=== PATIENT | male | born 1995 | race Hispanic/Latino ===

== ENCOUNTER → 2018-05-04 | Emergency (ER) | payer OTHER ==
[~2018-05-04] VITALS: Ht 162.6 cm; Wt 74.8 kg
[~2018-05-04] MED LIST: PRIFTIN150 MG PO; PYRIDOXINE HCL50 MG PO
== END | disposition home or self-care (01) ==
LOC: ED 23:17
DX: R10.31 Right lower quadrant pain (principal); Z79.899 Other long term (current) drug therapy
CPT/HCPCS: 74177; 80053; 81001; 82140; 83690; 85025; 85610; 85730; 99284-25; Q9967